=== PATIENT | male | born 1990 | race Caucasian/White ===

== ENCOUNTER 2018-09-20 17:33 | Emergency (ER) | payer SELFPAY ==
--- NOTE | 2018-09-20 18:47 | EDM.PDOC ---
ED HPI GENERAL MEDICAL PROBLEM - General Chief Complaint: General Stated Complaint: TOOTHACHE Time Seen by Provider: 09/20/18 18:30 Source of Information: Reports: Patient History Limitations: Reports: No Limitations - History of Present Illness INITIAL COMMENTS - FREE TEXT/NARRATIVE: 28 yo male with bilateral dental pain over the past few days presents now with L facial swelling. Has not called for a dentist appt. Has not seen a dentist in yrs. No fever. Pain was actually worse yesterday. Onset: Gradual Onset Date: 09/16/18 Duration: Day(s): (4), Getting Worse, Waxing/Waning Location: Reports: Face Quality: Reports: Ache Severity: Moderate Improves with: Reports: None Worsens with: Reports: Other (time) Context: Reports: Other (dental neglect) Associated Symptoms: Reports: No Other Symptoms. Denies: Diaphoresis, Fever/ Chills, Nausea/Vomiting Treatments [employer]: Reports: Other (see below) (none) - Related Data Allergies Allergy/AdvReac Type Severity Reaction Status Date / Time No Known Allergies Allergy Verified 09/20/18 18:30 Social & Family History - Tobacco Use Smoking Status *Q: Current Every Day Smoker Years of Tobacco use: 8 Packs/Tins Daily: 1 - Caffeine Use Caffeine Use: Reports: Soda - Recreational Drug Use Recreational Drug Use: Yes Recreational Drug Type: Reports: Marijuana/Hashish Recreational Drug Use Frequency: Daily ED ROS GENERAL - Review of Systems Review Of Systems: See Below Constitutional: Reports: No Symptoms HEENT: Reports: Dental Pain, Other (L facial swelling) Respiratory: Reports: No Symptoms Cardiovascular: Reports: No Symptoms Endocrine: Reports: No Symptoms GI/Abdominal: Reports: No Symptoms : Reports: No Symptoms Musculoskeletal: Reports: No Symptoms Skin: Reports: No Symptoms Neurological: Reports: No Symptoms ED EXAM, GENERAL - Physical Exam Exam: See Below Exam Limited By: No Limitations General Appearance: Alert, WD/WN, No Apparent Distress Eye Exam: Bilateral Eye: EOMI, Normal Inspection, PERRL Ears: Normal External Exam, Normal Canal, Hearing Grossly Normal, Normal TMs Ear Exam: Bilateral Ear: Auricle Normal, Canal Normal, TM normal Nose: Normal Inspection, Normal Mucosa, No Blood Throat/Mouth: Normal Inspection, Normal Lips, Normal Oropharynx, Normal Voice, No Airway Compromise Head: Atraumatic, Normocephalic, Facial Swelling (L cheek) Neck: Normal Inspection, Supple, Non-Tender Respiratory/Chest: No Respiratory Distress, Lungs Clear, Normal Breath Sounds, No Accessory Muscle Use Cardiovascular: Regular Rate, Rhythm, No Edema Neurological: Alert, Oriented, CN II-XII Intact, Normal Cognition, No Motor/ Sensory Deficits Psychiatric: Normal Affect, Normal Mood Skin Exam: Warm, Dry, Intact, Normal Color, No Rash Course - Vital Signs Last Recorded V/S: Last Vital Signs Temp 36.2 C 09/20/18 18:30 Pulse 113 H 09/20/18 18:30 Resp 16 09/20/18 18:30 BP 127/77 09/20/18 18:30 Pulse Ox 97 09/20/18 18:30 Departure - Departure Time of Disposition: 18:46 Disposition: Home, Self-Care 01 Condition: Fair Clinical Impression: Dental infection - Discharge Information *PRESCRIPTION DRUG MONITORING PROGRAM REVIEWED*: No *COPY OF PRESCRIPTION DRUG MONITORING REPORT IN PATIENT SAURAV: No Instructions: Dental Abscess, [id number] Referrals: PCP,None [Primary Care Provider] - Additional Instructions: Take penicillin every 6 hrs. Take ibuprofen 600 mg every 6 hrs and/or acetaminophen 1000 mg every 6 hrs as needed for pain relief. If this combination is not effective enough, then substitute [place] for the acetaminophen. See a dentist of choice for resolution of this issue. Return if worse in the interim or see your family doctor.
== END 2018-09-20 19:03 | disposition home or self-care (01) ==
LOC: JP.ED 17:33
DX: K04.7 Periapical abscess without sinus (principal); F17.210 Nicotine dependence, cigarettes, uncomplicated
CPT/HCPCS: 99282

== ENCOUNTER 2020-11-10 11:24 | Emergency (ER) | payer SELFPAY ==
--- NOTE | 2020-11-10 12:04 | EDM.PDOC ---
ED HPI GENERAL MEDICAL PROBLEM - General Chief Complaint: ENT Problem Stated Complaint: TOOTH PAIN ON LEFT SIDE OF FACE Time Seen by Provider: 11/10/20 11:45 Source of Information: Reports: Patient History Limitations: Reports: No Limitations - History of Present Illness INITIAL COMMENTS - FREE TEXT/NARRATIVE: 30-year-old male with very advanced dental decay especially in the mandible, presents with swelling and pain in the left mandible for the past several days. He has contacted the dentist and is waiting for some insurance issues to go through, and they recommended him coming in to get some antibiotic and possibly pain control. No fevers or chills. Onset: Gradual Duration: Day(s): (Symptoms for 3 days) Location: Reports: Other (Left mandibular teeth) Associated Symptoms: Reports: Other (He had some mild swelling of the left mandible yesterday that seems to be better) - Related Data Allergies Allergy/AdvReac Type Severity Reaction Status Date / Time No Known Allergies Allergy Verified 11/10/20 11:35 Home Meds: Home Meds NK [No Known Home Meds] 11/10/20 [History] Past Medical History - Infectious Disease History Infectious Disease History: Reports: Chicken Pox, Influenza - Past Surgical History Head Surgeries/Procedures: Reports: None Dermatological Surgical History: Reports: None Social & Family History - Tobacco Use Tobacco Use Status *Q: Current Every Day Tobacco User Years of Tobacco use: 15 Packs/Tins Daily: 1 Used Tobacco, but Quit: No Second Hand Smoke Exposure: No - Caffeine Use Caffeine Use: Reports: Coffee, Energy Drinks, Soda, Tea - Recreational Drug Use Recreational Drug Use: Yes Drug Use in Last 12 Months: Yes Recreational Drug Type: Reports: Marijuana/Hashish Recreational Drug Use Frequency: Weekly ED ROS ENT - Review of Systems Review Of Systems: See Below Constitutional: Denies: Fever, Chills HEENT: Reports: Dental Pain, Other (Facial swelling) Respiratory: Reports: No Symptoms Cardiovascular: Reports: No Symptoms GI/Abdominal: Reports: No Symptoms Skin: Reports: No Symptoms Neurological: Denies: Headache ED EXAM, ENT - Physical Exam Exam: See Below Exam Limited By: No Limitations General Appearance: Alert, No Apparent Distress Mouth/Throat: Other (Patient has extremely advanced dental decay of the molars bilaterally of the mandible, some gingival swelling and tenderness on the left side. No facial swelling, no lymphadenopathy) Neck: No: Lymphadenopathy (R), Lymphadenopathy (L) Respiratory/Chest: No Respiratory Distress, Lungs Clear Neurological: Alert, Oriented Psychiatric: Normal Affect, Normal Mood Skin: Warm, Dry. No: Erythema Course - Vital Signs Last Recorded V/S: Last Vital Signs Temp 96.8 F L 11/10/20 11:40 Pulse 70 11/10/20 11:40 Resp 15 11/10/20 11:40 BP 139/82 11/10/20 11:40 Pulse Ox 96 11/10/20 11:40 - Re-Assessments/Exams Free Text/Narrative Re-Assessment/Exam: 11/10/20 18:14 Patient was placed on penicillin VK 500 mg 4 times a day, #40. Also given 10 hydrocodone for extra pain control and he can continue anti-inflammatories along with the stronger pain medication. When his insurance goes through the next day or two is going to make an appointment at the dental clinic. Departure - Departure Time of Disposition: 12:13 Disposition: Home, Self-Care 01 Clinical Impression: Abscess, dental - Discharge Information Instructions: Dental Abscess, [id number] Referrals: PCP,None [Primary Care Provider] - Forms: ED Department Discharge Care Plan Goals: Take antibiotic 4 times a day, continue with ibuprofen or naproxen and add hydrocodone if needed as prescribed. Get into the dentist as soon as possible, continue taking the antibiotic until your dentist visit or until gone. Sepsis Event Note (ED) - Evaluation Sepsis Screening Result: No Definite Risk - Focused Exam Vital Signs: Vital Signs Temp Pulse Resp BP Pulse Ox 11/10/20 11:40 96.8 F L 70 15 139/82 96 11/10/20 11:38 96.8 F L 70 15 139/82 96
== END 2020-11-10 12:13 | disposition home or self-care (01) ==
LOC: JP.ED 11:24
DX: K04.7 Periapical abscess without sinus (principal); Z72.0 Tobacco use
CPT/HCPCS: 99282